=== PATIENT | male | born 1985 | race Hispanic/Latino ===

== ENCOUNTER 2020-06-12 13:42 | Emergency (ER) | payer SELFPAY ==
[~2020-06-12] VITALS: Ht 175.3 cm; Wt 65.8 kg
[2020-06-12] MEDS ORDERED: ACETAMINOPHEN500 MG PO (14:35)
[2020-06-12] MEDS ORDERED: IBUPROFEN IB200 MG PO (14:35)
[2020-06-12] MEDS ORDERED: DOXYCYCLINE HY100 MG PO (14:35)
[2020-06-12] MEDS ORDERED: CLEOCIN HCL300 MG PO (14:35)
[2020-06-12] MEDS ORDERED: BACITRACIN ZINC 0.9GM TP ONE ×2 (14:39→15:00)
[2020-06-12] MEDS ORDERED: CLINDAMYCIN PHOS 600 MG/ 4 ML VIAL IM ONE (14:45)
[2020-06-12] MEDS ORDERED: CLINDAMYCIN PHOS 600 MG/ 4 ML VIAL ONE (14:55)
[2020-06-12 15:23] VITALS: BP 138/76
== END 2020-06-12 15:19 | disposition home or self-care (01) ==
LOC: FSED 13:58
DX: L02.416 Cutaneous abscess of left lower limb (principal); F17.210 Nicotine dependence, cigarettes, uncomplicated
CPT/HCPCS: 96372; 99283